=== PATIENT | male | born 1940 | race Caucasian/White ===

== ENCOUNTER 2021-11-12 20:00 | Inpatient (IN) | payer OTHER ==
[~2021-11-12] VITALS: Ht 165.1 cm; Wt 60.9 kg
--- NOTE | ~2021-11-12 | EMS ---
[address] [address] EMS Patient Care Report Name: GET HUSTON Room #: 463-P ADM IN M.R.#: [id number] Admission: 11/12/21 Attend Phys: Narciso Gallagher MD Discharge: Date of : 38 Report #: [id number] THIS REPORT FOR: //name// Report Transmitted: 11/13/2021 01:17 EMS Care Summary [facility] [place] Incident [id number] @ 11/12/2021 18:51 Incident Location [address] [place] [address] Patient GET AMADO Male, 81 Years 1940 Patient Address [address] [place] [address] Patient History Hyperlipidemia,Hypertension (HTN),Type 2 diabetes mellitus,Congestive Heart Failure (CHF),Chronic Obstructive Pulmonary Disease (COPD),Gastro-Esophageal Reflux Disease (GERD),Cardiac Condition - Other,Anxiety disorder, unspecified,History of falling,Acute respiratory failure,Novel Coronavirus (COVID-19),Pneumonia, unspecified organism,Sepsis,Tobacco use, Patient Allergies , Patient Medications Simvastatin, Humalog, Carvedilol, Doxycycline, Dexamethasone, Glipizide / Metformin, Aminophylline / Guaifenesin, DuoNeb, Sodium Bicarbonate, Chief Complaint Weakness Disposition Transported No Lights/[place] Dispatch Reason Sick Person Transported To [address] [address] EMS Patient Care Report Name: GET HUSTON Room #: 463-P ADM IN M.R.#: [id number] Admission: 11/12/21 Attend Phys: Narciso Gallagher MD Discharge: Date of : 38 Report #: [id number] Narrative [facility] responded Emergent to the stated address for a sick. Per dispatch pt has a decrease in condition. Per dispatch, [facility] downgrades to non-emergent response. Upon arrival [facility] is directed to the [address], room 107. initial pt contact is made. Pt is discovered in the seated position with no obvious distress. Pt is accompanied by two family members. Per family, pt had been admitted to the facility within the last 7 days. Family feels as if pt is not receiving the care that the pt needs. Primary assessment reveals a patent airway, adequate breathing, and spontaneous circulation. Pt is wearing home oxygen at 4LPM via [place]. Pt states "I just feel run down." Pt states that he had been previously discharged from [facility] for COVID pneumonia. Pt is at facility for rehab. Pt is hooked up to the monitor. initial vital signs are obtained. Pt placed on the 4-lead. 12-lead obtained and interpreted by Surgical Tech Sidney. Pt would like to be taken to [place]. Pt is advised of High Volume Status. Pt is educated as to what that means. Pt chooses to go to [facility]. Pt is assisted from sitting to standing and seated on the cot. Pt is secured using all necessary seatbelts and 2 side rails. Pt is changed from home oxygen to portable oxygen at 4LPM via [place]. Staff makes contact with [facility]. Per staff, pt's family called [facility] for transport today. Pt did not have any complaints. Pt appears to be unhappy about facility. Pt is taken outside and loaded in to the ambulance without incident. Pt's belongings taken with pt per family's request. Pt is rehooked up to the monitor. Blood Glucose obtained. Pt verifies history and medication list. Pt is alert and oriented x 4 with a GCS of 15. Pt rests comfortably and calmly on the cot throughout transport. Vital signs monitored as documented. Radio report is called to [facility]. No questions or orders. Room assignment upon arrival. Upon arrival, pt is unloaded from the ambulance without incident. Pt taken to Room 6. Full verbal report given to MARIA ALEJANDRA Paul. Pt moved from cot to gurney via sheet pull method. Pt is changed from portable oxygen to hospital oxygen. Pt is left with no significant change in condition. All necessary signatures are obtained. Facesheet obtained. Pt's belongings left with pt. [facility]. END. Initial Vitals @19:46SpO2: 99, @19:54SpO2: 98, @19:12 @19:09P: 84,R: 19,BP: 139/65, @19:46P: 82,R: 20,BP: 140/73, @19:54P: 88,R: 20,BP: 146/69, @19:09GCS: 15, @19:46GCS: 15, @19:54GCS: 15, @19:10 @19:31Glucose: 280, [facility] [address] [place] [address] EMS Patient Care Report Name: GET HUSTON Room #: 3- ADM IN M.R.#: [id number] Admission: 11/12/21 Attend Phys: Narciso Gallagher MD Discharge: Date of : 38 Report #: [id number] Assessments @19:09MENTAL:SKIN:HEENT:LUNG SOUNDS:ABDOMEN:PELVIS//GI:EXTREMITIES:PULSE:NEURO: Impression Generalized Weakness Procedures @19:31 Oxygen Complications: , Response: Improved @19:12 12-Lead ECG Response: UnchangedSucceeded Timeline 00:00,Call Received 18:50,Dispatch Notified 18:50,Psap Call 18:51,Dispatched 18:51,En Route 19:02,On Scene 19:09,At Patient 19:09,BP: 139/65 M,PULSE: 84,RR: 19 R,SPO2: Ox,ETCO2: ,BG: ,PAIN: ,GCS: , 19:09,BP: / M,PULSE: ,RR: R,SPO2: Ox,ETCO2: ,BG: ,PAIN: ,GCS: 15, 19:10,BP: / M,PULSE: ,RR: R,SPO2: Ox,ETCO2: ,BG: ,PAIN: ,GCS: , 19:12,12-Lead ECG,Response: UnchangedSucceeded, 19:12,BP: / M,PULSE: ,RR: R,SPO2: Ox,ETCO2: ,BG: ,PAIN: ,GCS: , 19:31,Depart Scene 19:31,Oxygen Complications: ,,Response: Improved 19:31,BP: / M,PULSE: ,RR: R,SPO2: Ox,ETCO2: ,B,PAIN: ,GCS: , 19:46,BP: / M,PULSE: ,RR: R,SPO2: 99 Ox,ETCO2: ,BG: ,PAIN: ,GCS: , 19:46,BP: 140/73 M,PULSE: 82,RR: 20 R,SPO2: Ox,ETCO2: ,BG: ,PAIN: ,GCS: , 19:46,BP: / M,PULSE: ,RR: R,SPO2: Ox,ETCO2: ,BG: ,PAIN: ,GCS: 15, 19:54,BP: / M,PULSE: ,RR: R,SPO2: 98 Ox,ETCO2: ,BG: ,PAIN: ,GCS: , 19:54,BP: 146/69 M,PULSE: 88,RR: 20 R,SPO2: Ox,ETCO2: ,BG: ,PAIN: ,GCS: , 19:54,BP: / M,PULSE: ,RR: R,SPO2: Ox,ETCO2: ,BG: ,PAIN: ,GCS: 15, 19:57,At Destination 20:42,Call Closed Disclaimer v1.1 Copyright [address] [employer] This EMS Care Summary contains data elements from the applicable legal record (which may be displayed differently). It is designed to provide pertinent information for the following purposes: continuity of care, clinical quality, and state data reporting. The complete legal record is available to ED staff and administrators of the receiving hospital in [employer] Patient Tracker. All data is provided "as is."
[2021-11-12 20:00] VITALS: BP 138/89
[~2021-11-12 20:00] MED LIST: ASPIRIN325; CALCIUM 600 +1 EAC1 PO; CARVEDILOL12.5 MG PO; FISHOIL; MULTIVITAMINS; OMEPRAZOLE; PLAVIX 75 MG TA75 MG PO; VYTORIN 10-201 EACH PO
[2021-11-12 20:53] LABS: ABSOLUTE NEUTROPHILS 12.9 thou/uL (1.4-8.2); BASOPHILS 0.1 % (0.0-2.0); EOSINOPHILS 0.1 % (0.0-3.0); HEMATOCRIT 28.5 % (42.0-52.0); HEMOGLOBIN 8.9 gm/dL (14.0-18.0); LYMPHOCYTES 3.2 % (24.0-44.0); MCH 29.8 pg (26.0-34.0); MCHC 31.2 g/dL (28.0-37.0); MCV 95.4 fL (80.0-100.0); MONOCYTES 2.8 % (1.0-8.0); PLATELET COUNT 106 thou/uL (150-400); POLYS 93.8 % (36.0-66.0); RBC 2.99 mil/uL (4.50-6.00); RDW 18.6 % (10.5-14.5); WBC 13.7 thou/uL (4.0-11.0)
[2021-11-12 21:18] LABS: CALCIUM 7.4 mg/dL (8.5-10.1); CREATININE 3.3 mg/dL (0.7-1.3); POTASSIUM 5.9 mmol/L (3.5-5.1)
[2021-11-12 21:29] LABS: ALBUMIN 1.5 g/dL (3.4-5.0); MAGNESIUM 1.9 mg/dL (1.8-2.4); TOTAL BILIRUBIN 0.4 mg/dL (0.2-1.0); TOTAL PROTEIN 4.6 g/dL (6.4-8.2)
[2021-11-12 21:54] LABS: ANISOCYTOSIS 1+
[2021-11-12] MEDS ORDERED: VYTORIN 10-401 EACH PO (22:28)
[2021-11-12] MEDS ORDERED: DEXAMETHASONE1 MG PO (22:30)
[2021-11-12] MEDS ORDERED: FLOMAX0.4 MG PO (22:31)
[2021-11-12] MEDS ORDERED: DORYX MPC120 MG PO (22:32)
[2021-11-12] MEDS ORDERED: HUMALOG100 UNIT/2 (22:34)
[2021-11-12 23:30] LABS: URINE BILIRUBIN NEGATIVE (Negative); URINE BLOOD NEGATIVE (Negative); URINE CLARITY CLEAR; URINE COLOR YELLOW; URINE GLUCOSE-RANDOM* 1+ (Negative); URINE KETONES NEGATIVE (Negative); URINE LEUKOCYTES-REFLEX NEGATIVE (Negative); URINE NITRITE-REFLEX NEGATIVE (Negative); URINE PROTEIN (DIPSTICK) 2+ (Negative); URINE UROBILINOGEN 0.2 E.U./dl (0.2-1.0)
[2021-11-12 23:44] LABS: BACTERIA-REFLEX 1-9 Few /HPF (None Seen); CELLULAR CASTS 0-3 Few /LPF (None Seen); CRYSTALS None Seen /LPF (None Seen); HYALINE CASTS 0-3 Few /LPF (None Seen); MUCUS 0-3 Light strn/LPF (None Seen); SQUAMOUS 0-3 Few /LPF (0-3); URINE RBC 1-2 Rare /HPF (NONE SEEN); URINE WBC-REFLEX 0-5 Rare /HPF (0-5)
[2021-11-13 01:03] VITALS: BP 147/74
[2021-11-13 06:06] LABS: HEMATOCRIT 29.7 % (42.0-52.0); HEMOGLOBIN 9.2 gm/dL (14.0-18.0); MCH 29.9 pg (26.0-34.0); MCHC 30.8 g/dL (28.0-37.0); MCV 96.8 fL (80.0-100.0); RBC 3.07 mil/uL (4.50-6.00); RDW 18.6 % (10.5-14.5); WBC 13.7 thou/uL (4.0-11.0)
[2021-11-13 06:16] LABS: CALCIUM 7.3 mg/dL (8.5-10.1); CREATININE 3.1 mg/dL (0.7-1.3); POTASSIUM 5.2 mmol/L (3.5-5.1)
[2021-11-13 07:50] VITALS: BP 127/47
[2021-11-13 11:50] VITALS: BP 117/52
[2021-11-13 16:27] VITALS: BP 123/55
[2021-11-13 18:49] VITALS: BP 123/55
[2021-11-14 05:07] VITALS: BP 116/50
[2021-11-14 05:38] LABS: HEMATOCRIT 24.4 % (42.0-52.0); MCH 30.3 pg (26.0-34.0); RBC 2.66 mil/uL (4.50-6.00); RDW 17.3 % (10.5-14.5); WBC 10.9 thou/uL (4.0-11.0)
[2021-11-14 05:55] LABS: CALCIUM 7.4 mg/dL (8.5-10.1); CREATININE 3.5 mg/dL (0.7-1.3); POTASSIUM 5.1 mmol/L (3.5-5.1)
[2021-11-14 05:57] LABS: MCV 91.8 fL (80.0-100.0)
[2021-11-14 08:40] VITALS: BP 119/55
[2021-11-14 14:24] VITALS: BP 118/55
[2021-11-14 19:22] VITALS: BP 123/56
[2021-11-15 04:19] VITALS: BP 115/54
--- NOTE | 2021-11-15 07:56 | EKG ---
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 11/15/21 0756 07 07 Dao Manriquez MD, FACC /EPI
--- NOTE | 2021-11-15 09:51 | 2DMMODE ---
[facility] [place] [address] 2 D/M-MODE ECHOCARDIOGRAM Name: GET HUSTON Room #: 463-P ADM IN M.R.#: [id number] Admission: 11/12/21 Attend Phys: Narciso Gallagher MD Discharge: Date of : 38 Report #: [id number] THIS REPORT FOR: cc: KENRICK - No family physician/PCP FAM - No family physician/PCP Dao Manriquez MD [facility] ~ APPROVED REPORT Study performed: 11/15/2021 08:10:38 EXAM: Comprehensive 2D, Doppler, and color-flow Echocardiogram Patient Location: Bedside Room #: 463 Status: routine BSA: 1.67 HR: 55 bpm BP: 115/54 mmHg Rhythm: LBBB/PVCs Other Information Study Quality: Adequate Indications Short of breath, CHF. Hx: CAD, PCI, COPD, PAF, CHF, COVID. 2D Dimensions RVDd: 35.24 mm IVSd: 13.96 (7-11mm) LVOT Diam: 19.57 (18-24mm) LVDd: 51.88 mm PWd: 10.67 (7-11mm) LVDs: 41.52 (25-40mm) Left Atrium: 38.73 (27-40mm) Aortic Root: 29.33 mm Volumes Left Atrial Volume (Systole) Single Plane 4CH: 67.77 mL Single Plane 2CH: 55.89 mL LA ESV Index: 42.00 mL/m2 Aortic Valve AoV Peak Edwardo.: 1.56 m/s AO Peak Gr.: 9.77 mmHg LVOT Max P.17 mmHg LVOT Max V: 1.14 m/s [facility] [address] [place] [address] 2 D/M-MODE ECHOCARDIOGRAM Name: GET HUSTON Room #: 463-P ADM IN .R.#: [id number] Admission: 11/12/21 Attend Phys: Narciso Gallagher MD Discharge: Date of : 38 Report #: [id number] CHANTEL Vmax: 2.19 cm2 Mitral Valve E/A Ratio: 1.6 MV Decel. Time: 194.27 ms MV E Max Edwardo.: 0.83 m/s MV A Edwardo.: 0.52 m/s MV PHT: 56.34 ms Pulmonary Valve PV Peak Edwardo.: 0.91 m/s PV Peak Gr.: 3.33 mmHg Tricuspid Valve RAP Estimate: 5.00 mmHg Left Ventricle The left ventricle is normal size. There is global hypokinesis of the left ventricle. Moderate basal septal hypertrophy is present. Left ventricular systolic function is moderately decreased. LVEF 35-40%. Hypokinesis base of inferior wall. Moderate diastolic dysfunction Right Ventricle The right ventricle is normal size. The right ventricular systolic function is normal. Atria Left atrium is mildly dilated. The right atrium size is normal. Aortic Valve Aortic valve is moderately calcified. Mild-moderate aortic regurgitation. No aortic valvular stenosis. Mitral Valve Mild mitral annular calcification. Moderate mitral regurgitation. No evidence of mitral valve stenosis. Tricuspid Valve The tricuspid valve is normal in structure. There is no tricuspid valve regurgitation noted. Unable to assess PA pressure. Pulmonic Valve Pulmonic valve is not well visualized. There is no pulmonic valvular regurgitation noted. [facility] [address] [place] [address] 2 D/M-MODE ECHOCARDIOGRAM Name: GET HUSTON Room #: 463-P [facility] IN .R.#: [id number] Admission: 11/12/21 Attend Phys: Narciso Gallagher MD Discharge: Date of : 38 Report #: [id number] Great Vessels IVC is normal in size and collapses >50% with inspiration. Pericardium There is no pericardial effusion. Small right pleural effusion noted. <Conclusion> Left ventricular systolic function is moderately decreased. LVEF 35-40% Global hypokinesis more pronounced involving base of inferior wall. Moderate diastolic dysfunction Aortic valve is moderately calcified. Mild-moderate aortic regurgitation, no stenosis. Mild mitral annular calcification. Moderate mitral regurgitation. Unable to assess pulmonary artery pressure. There is no pericardial effusion. <ELECTRONICALLY SIGNED> By: Dao Manriquez MD, [facility] 11/15/21 [phone] Dao Manriquez MD, FACC /INF
[2021-11-15 10:29] VITALS: BP 118/52
[2021-11-15 19:50] VITALS: BP 134/60
[2021-11-16 05:58] VITALS: BP 120/57
[2021-11-16 06:36] LABS: ALBUMIN 1.4 g/dL (3.4-5.0); CALCIUM 7.1 mg/dL (8.5-10.1); CREATININE 3.4 mg/dL (0.7-1.3); PHOSPHORUS 3.9 mg/dL (2.5-4.9); POTASSIUM 4.9 mmol/L (3.5-5.1)
[2021-11-16 07:48] VITALS: BP 117/55
[2021-11-16 11:30] VITALS: BP 122/51
[2021-11-16 16:07] VITALS: BP 129/59
[2021-11-16 20:17] VITALS: BP 123/51
[2021-11-17 08:03] VITALS: BP 133/58
[2021-11-17 19:22] VITALS: BP 134/59
[2021-11-18 07:45] VITALS: BP 124/55
[2021-11-18 12:16] VITALS: BP 123/59
[2021-11-18 15:25] VITALS: BP 131/54
[2021-11-18 20:14] VITALS: BP 132/59
[2021-11-19 03:57] VITALS: BP 121/55
[2021-11-19 07:10] LABS: HEMATOCRIT 23.8 % (42.0-52.0); HEMOGLOBIN 7.8 gm/dL (14.0-18.0); MCH 30.3 pg (26.0-34.0); MCHC 32.8 g/dL (28.0-37.0); MCV 92.4 fL (80.0-100.0); RBC 2.58 mil/uL (4.50-6.00); RDW 17.6 % (10.5-14.5); WBC 7.3 thou/uL (4.0-11.0)
[2021-11-19 07:45] LABS: ALBUMIN 1.2 g/dL (3.4-5.0); CALCIUM 7.8 mg/dL (8.5-10.1); CREATININE 2.9 mg/dL (0.7-1.3); PHOSPHORUS 3.2 mg/dL (2.6-4.7); POTASSIUM 5.1 mmol/L (3.5-5.1)
[2021-11-19 07:58] VITALS: BP 114/51
[2021-11-19 20:58] VITALS: BP 138/52
[2021-11-20 07:00] VITALS: BP 128/53
[2021-11-20 21:44] VITALS: BP 140/56
[2021-11-21 06:47] LABS: ALBUMIN 1.2 g/dL (3.4-5.0); CALCIUM 8.6 mg/dL (8.5-10.1); CREATININE 2.9 mg/dL (0.7-1.3); PHOSPHORUS 3.9 mg/dL (2.6-4.7); POTASSIUM 5.7 mmol/L (3.5-5.1)
[2021-11-21 08:35] VITALS: BP 120/62
[2021-11-21 17:07] VITALS: BP 133/57
[2021-11-21 19:58] VITALS: BP 122/40
[2021-11-22 04:57] VITALS: BP 116/40
[2021-11-22 06:10] LABS: ALBUMIN 1.1 g/dL (3.4-5.0); CALCIUM 7.4 mg/dL (8.5-10.1); CREATININE 2.9 mg/dL (0.7-1.3); PHOSPHORUS 3.7 mg/dL (2.5-4.9); POTASSIUM 4.1 mmol/L (3.5-5.1)
[2021-11-22 08:25] VITALS: BP 134/65
[2021-11-22 20:23] VITALS: BP 116/91
[2021-11-23 04:59] VITALS: BP 120/54
[2021-11-23 06:02] LABS: ALBUMIN 1.2 g/dL (3.4-5.0); CALCIUM 7.5 mg/dL (8.5-10.1); CREATININE 3.1 mg/dL (0.7-1.3); PHOSPHORUS 3.7 mg/dL (2.5-4.9)
[2021-11-23 08:00] VITALS: BP 127/42
[2021-11-23 08:25] VITALS: BP 127/42
[2021-11-23 16:27] VITALS: BP 133/52
[2021-11-24 09:07] VITALS: BP 126/42
[2021-11-24 12:44] VITALS: BP 127/42
[2021-11-24] MEDS ORDERED: FLOMAX0.4 MG PO (14:05)
[2021-11-24] MEDS ORDERED: PROTONIX 20 MG20 MG PO (14:05)
[2021-11-24 16:23] VITALS: BP 140/37
[2021-11-24 17:38] VITALS: BP 140/70
== END 2021-11-24 19:20 | DRG 682 ==
LOC: ER 20:00 → 4W 23:50 → EROBS 23:50 → 4W 11-13 00:09 → 4S 11-20 17:58
PROVIDERS: Emergency Medicine; Internal Medicine Pulmonary Disease; Nurse Practitioner Family; ADMIT Hospitalist; ATTEND Hospitalist
DX: N18.9 Chronic kidney disease, unspecified (principal); A41.9 Sepsis, unspecified organism; J96.01 Acute respiratory failure with hypoxia; I50.33 Acute on chronic diastolic (congestive) heart failure; E43 Unspecified severe protein-calorie malnutrition; J18.9 Pneumonia, unspecified organism; J44.1 Chronic obstructive pulmonary disease with (acute) exacerbation; E87.0 Hyperosmolality and hypernatremia; J44.0 Chronic obstructive pulmonary disease with (acute) lower respiratory infection; N17.9 Acute kidney failure, unspecified; E11.65 Type 2 diabetes mellitus with hyperglycemia; E87.5 Hyperkalemia; Z86.16 Personal history of COVID-19; J44.9 Chronic obstructive pulmonary disease, unspecified; D63.1 Anemia in chronic kidney disease; E78.5 Hyperlipidemia, unspecified; Z88.0 Allergy status to penicillin; Z20.822 Contact with and (suspected) exposure to COVID-19; I25.10 Atherosclerotic heart disease of native coronary artery without angina pectoris; Z95.5 Presence of coronary angioplasty implant and graft; K21.9 Gastro-esophageal reflux disease without esophagitis; F17.210 Nicotine dependence, cigarettes, uncomplicated
CPT/HCPCS: 10045; 10100

== ENCOUNTER 2021-11-24 14:43 | Inpatient (IN) | payer OTHER ==
[~2021-11-24] VITALS: Ht 165.1 cm; Wt 60.6 kg
[~2021-11-24 14:43] MED LIST changes: +DEXAMETHASONE1 MG PO; +DORYX MPC120 MG PO; +FLOMAX0.4 MG PO; +HUMALOG100 UNIT/2; +PROTONIX 20 MG20 MG PO; +VYTORIN 10-401 EACH PO
[2021-11-24 18:41] VITALS: BP 132/48
[2021-11-24 20:20] VITALS: BP 138/59
[2021-11-25 06:11] LABS: HEMATOCRIT 23.7 % (42.0-52.0); HEMOGLOBIN 7.7 gm/dL (14.0-18.0); MCH 30.1 pg (26.0-34.0); MCHC 32.4 g/dL (28.0-37.0); MCV 92.8 fL (80.0-100.0); RBC 2.55 mil/uL (4.50-6.00); RDW 17.4 % (10.5-14.5); WBC 5.2 thou/uL (4.0-11.0)
[2021-11-25 06:26] LABS: CALCIUM 7.9 mg/dL (8.5-10.1); CREATININE 3.3 mg/dL (0.7-1.3)
[2021-11-25 06:28] LABS: URINE BILIRUBIN NEGATIVE (Negative); URINE BLOOD TRACE (Negative); URINE CLARITY CLEAR; URINE COLOR YELLOW; URINE GLUCOSE-RANDOM* NEGATIVE (Negative); URINE KETONES NEGATIVE (Negative); URINE LEUKOCYTES-REFLEX NEGATIVE (Negative); URINE NITRITE-REFLEX NEGATIVE (Negative); URINE PROTEIN (DIPSTICK) 2+ (Negative); URINE SPECIFIC GRAVITY 1.015 (1.005-1.035); URINE UROBILINOGEN 0.2 E.U./dl (0.2-1.0)
[2021-11-25 06:40] LABS: CASTS None Seen /LPF (None Seen); SQUAMOUS 0-3 Few /LPF (0-3)
[2021-11-25 06:41] LABS: BACTERIA-REFLEX None Seen /HPF (None Seen); CRYSTALS None Seen /LPF (None Seen); URINE RBC None Seen /HPF (NONE SEEN); URINE WBC-REFLEX 0-5 Rare /HPF (0-5)
[2021-11-25 08:25] VITALS: BP 123/43
[2021-11-25 12:55] LABS: % SATURATION 27 % (20-39); IRON 37 ug/dL (65-175); TIBC 136 ug/dL (250-450)
[2021-11-25 13:28] LABS: FOLIC ACID 8.1 ng/mL (8.6-58.9)
[2021-11-25 19:30] VITALS: BP 139/51
[2021-11-26 07:52] VITALS: BP 121/52
[2021-11-26 19:32] VITALS: BP 154/60
[2021-11-27 08:00] VITALS: BP 158/67
[2021-11-27 19:17] VITALS: BP 151/56
[2021-11-28 07:00] VITALS: BP 134/37
[2021-11-28 19:30] VITALS: BP 143/62
[2021-11-29 04:39] LABS: CALCIUM 9.1 mg/dL (8.5-10.1); CREATININE 3.6 mg/dL (0.7-1.3); POTASSIUM 5.6 mmol/L (3.5-5.1)
[2021-11-29 05:05] LABS: ABSOLUTE NEUTROPHILS 4.8 thou/uL (1.4-8.2); BASOPHILS 0.4 % (0.0-2.0); EOSINOPHILS 2.2 % (0.0-3.0); HEMATOCRIT 24.3 % (42.0-52.0); HEMOGLOBIN 7.8 gm/dL (14.0-18.0); LYMPHOCYTES 21.4 % (24.0-44.0); MCH 30.2 pg (26.0-34.0); MCV 94.2 fL (80.0-100.0); MONOCYTES 12.8 % (1.0-8.0); PLATELET COUNT 368 thou/uL (150-400); POLYS 63.2 % (36.0-66.0); RBC 2.58 mil/uL (4.50-6.00); RDW 17.7 % (10.5-14.5); WBC 7.6 thou/uL (4.0-11.0)
[2021-11-29 08:38] VITALS: BP 126/70
[2021-11-29 19:20] VITALS: BP 152/61
[2021-11-30 08:00] VITALS: BP 118/54
[2021-11-30 19:40] VITALS: BP 146/55
[2021-12-01 05:29] LABS: ALBUMIN 1.5 g/dL (3.4-5.0); CALCIUM 8.8 mg/dL (8.5-10.1); CREATININE 3.7 mg/dL (0.7-1.3); PHOSPHORUS 3.5 mg/dL (2.6-4.7); POTASSIUM 5.4 mmol/L (3.5-5.1)
[2021-12-01 08:00] VITALS: BP 109/56
[2021-12-01 15:24] LABS: HEMATOCRIT 25.3 % (42.0-52.0); HEMOGLOBIN 8.3 gm/dL (14.0-18.0); MCHC 32.7 g/dL (28.0-37.0); MCV 94.5 fL (80.0-100.0); RBC 2.68 mil/uL (4.50-6.00); RDW 17.7 % (10.5-14.5); WBC 8.8 thou/uL (4.0-11.0)
[2021-12-01 19:36] VITALS: BP 143/62
[2021-12-02 08:00] VITALS: BP 115/57
[2021-12-02 19:23] VITALS: BP 142/58
[2021-12-03 05:50] LABS: ALBUMIN 1.7 g/dL (3.4-5.0); CALCIUM 8.6 mg/dL (8.5-10.1); CREATININE 3.5 mg/dL (0.7-1.3); PHOSPHORUS 3.8 mg/dL (2.5-4.9); POTASSIUM 5.4 mmol/L (3.5-5.1)
[2021-12-03 10:29] VITALS: BP 151/58
[2021-12-03 19:17] VITALS: BP 142/64
[2021-12-04 07:20] VITALS: BP 129/44
[2021-12-04 09:15] VITALS: BP 129/44
[2021-12-04 20:40] VITALS: BP 117/56
[2021-12-05 07:19] VITALS: BP 112/58
[2021-12-05 08:00] VITALS: BP 116/59
--- NOTE | 2021-12-05 13:19 | HC ---
[facility] [place] [address] CONSULTATION Name: GET HUSTON Room #: 510-P [facility] IN ..#: [id number] Admission: 11/24/21 Attend Phys: Jimenez Gonzales MD Discharge: Date of : 38 Report #: [id number] THIS REPORT FOR: cc: KENRICK Singh family physician/PCP KENRICK Singh family physician/PCP Matthias Mari PhD ~ DATE OF SERVICE: 12/04/2021 NEUROBEHAVIORAL STATUS EXAM ATTENDING PHYSICIAN: Jimenez Gonzales M.D. BEAD FILLER: Matthias Mari, PhD CLINICAL PRESENTATION: The patient is an 81-year-old male initially admitted to the hospital with acute hypoxic respiratory failure. He has had multiple admissions to the hospital in respiratory distress. A recent CT scan revealed multifocal pneumonia consistent with COVID-19 infection. The patient had been living independently prior to this recent hospitalization. Neuropsychological consultation was requested to provide assistance in the assessment of cognitive and emotional status and provide recommendations and services. Please refer to medical records for complete summary of his medical condition history and medication. Prior to this most recent admission, he reports that he was independent with instrumental activities of daily living and driving. He reports having had multiple episodes of pneumonia, but decreased insight into aspects of his health care are suggested. For instance, he felt like the COVID-19 vaccine gave him his most recent episode of pneumonia. His 5 years ago. The patient has 1 daughter and 2 stepdaughters. His family appears supportive. The patient discontinued tobacco in 08/2021. He does not report a history of alcohol or drug abuse. He is a high school graduate. 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 TECHNIQUES UTILIZED: Clinical interview, review of medical records, staff consultation and behavioral observation, mini mental status exam 2 standard version, brief verbal fluency assessment and clock drawing EXAMINATION PROCEDURE: The patient is severely hard of hearing which required multiple repetition of questions during the interview and testing. While poor hearing is indicated, decreased auditory comprehension is also suggested. The patient was 0/3 for initial encoding of verbally presented words. A modification of the test was made and words were written down for him. He was 5/5 for serial sevens, 5/[address] He was 3/3 for recall of [address] [address] CONSULTATION Name: GET HUSTON Room #: 510-P [facility] IN [facility].#: [id number] Admission: 11/24/21 Attend Phys: Jimenez Gonzales MD Discharge: Date of : 38 Report #: [id number] 3 items after they were visually presented. Performance on the MMSE 2 standard version was extremely low with a raw score of 21 and a T score of 28 with a percentile rank of 1. He was 1/5 for serial sevens, 2/2 for naming, 1/1 for repetition, 3/3 for comprehension. He could read and follow a single command. The patient was unable to write a sentence or copy a simple geometric design. Severe deficits in visual spatial construction are noted. Category fluency assessment for animals was extremely low with a raw score of 10. The patient is presenting with deficits in visual spatial construction, executive functioning, sustained concentration and divided attention. Speech therapy notes suggest moderate deficits in memory and mild to moderate deficits in cogntion. He is severely hard of hearing which impacted aspects of his performance on assessment. As indicated, while hard of hearing, decreased auditory comprenension is likely. 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 RECOMMENDATIONS: The patient will require increased supervision and structure to maintain safety up discharge. Auditory evaluation is recommended. He should not return to driving until a behind the wheel driving assessment can be completed. Additionally, he will require assistance for the management of medication, finances and nutrition. A followup neuropsych assessment following discharge can be of benefit to clarify the severity his cognitive functioning. Thank you very much for allowing me to provide the consultation on this patient. <ELECTRONICALLY SIGNED> By: Matthias Mari, PhD 12/05/21 1319 1647 18 Matthias Mari, PhD /nt
[2021-12-05 19:44] VITALS: BP 122/58
[2021-12-06 07:34] VITALS: BP 113/47
[2021-12-06 08:45] VITALS: BP 113/47
[2021-12-06 09:36] LABS: ALBUMIN 1.8 g/dL (3.4-5.0); CALCIUM 9.4 mg/dL (8.5-10.1); CREATININE 3.6 mg/dL (0.7-1.3); PHOSPHORUS 4.3 mg/dL (2.6-4.7)
[2021-12-06 10:25] LABS: HEMATOCRIT 28.4 % (42.0-52.0); HEMOGLOBIN 8.6 gm/dL (14.0-18.0); MCH 29.8 pg (26.0-34.0); MCHC 30.3 g/dL (28.0-37.0); MCV 98.4 fL (80.0-100.0); PLATELET COUNT 346 thou/uL (150-400); RBC 2.89 mil/uL (4.50-6.00); RDW 18.4 % (10.5-14.5); WBC 11.1 thou/uL (4.0-11.0)
[2021-12-06 10:33] LABS: MAGNESIUM 2.1 mg/dL (1.8-2.4)
[2021-12-06 10:58] LABS: ABSOLUTE NEUTROPHILS 7.5 thou/uL (1.4-8.2); ANISOCYTOSIS 2+; METAMYELOCYTES 1 %; MYELOCYTES 1 %
[2021-12-06 16:58] VITALS: BP 147/62
[2021-12-06 19:25] VITALS: BP 141/68
== END 2021-12-07 | disposition home health service (06) | DRG 189 ==
PROVIDERS: Hospitalist; Internal Medicine Nephrology; Nurse Practitioner; Nurse Practitioner Family; ADMIT Physical Medicine & Rehabilitation; ATTEND Physical Medicine & Rehabilitation
DX: J96.01 Acute respiratory failure with hypoxia (principal); E43 Unspecified severe protein-calorie malnutrition; I50.31 Acute diastolic (congestive) heart failure; N18.5 Chronic kidney disease, stage 5; I13.0 Hypertensive heart and chronic kidney disease with heart failure and stage 1 through stage 4 chronic kidney disease, or unspecified chronic kidney disease; J44.0 Chronic obstructive pulmonary disease with (acute) lower respiratory infection; R53.81 Other malaise; E87.5 Hyperkalemia; R41.9 Unspecified symptoms and signs involving cognitive functions and awareness; E11.22 Type 2 diabetes mellitus with diabetic chronic kidney disease; I25.10 Atherosclerotic heart disease of native coronary artery without angina pectoris; E78.5 Hyperlipidemia, unspecified; Z60.2 Problems related to living alone; K21.9 Gastro-esophageal reflux disease without esophagitis; D63.8 Anemia in other chronic diseases classified elsewhere; N40.0 Benign prostatic hyperplasia without lower urinary tract symptoms; E11.65 Type 2 diabetes mellitus with hyperglycemia; Z99.81 Dependence on supplemental oxygen; Z68.22 Body mass index [BMI] 22.0-22.9, adult; Z95.5 Presence of coronary angioplasty implant and graft; Z86.16 Personal history of COVID-19; Z88.0 Allergy status to penicillin; Z79.82 Long term (current) use of aspirin; Z79.899 Other long term (current) drug therapy
CPT/HCPCS: 10112